=== PATIENT | female | born 1990 | race Hispanic/Latino ===

== ENCOUNTER 2022-02-02 15:46 | Inpatient (IN) | payer OTHER ==
[2022-02-02] MEDS ORDERED: MINERAL OIL 30 ML ORAL LIQD PO PRN (15:52)
[2022-02-02] MEDS ORDERED: miSOPROStol 200 MCG TAB PR PRN (15:52)
[2022-02-02] MEDS ORDERED: fentaNYL 100 MCG/2 ML INJ IV PRN (15:52)
[2022-02-02] MEDS ORDERED: ACETAMINOPHEN 325 MG TAB PO PRN (15:52)
[2022-02-02] MEDS ORDERED: CARBOPROST TROMETHAMINE 250 MCG/1 ML INJ IM PRN (15:52)
[2022-02-02] MEDS ORDERED: LIDOCAINE (2%) 20 MG/1 ML VIAL 20 ML MDV INFILTRATI ONE (15:52)
[2022-02-02] MEDS ORDERED: BUTORPHANOL 2 MG/1 ML INJ IV PRN (15:52)
[2022-02-02] MEDS ORDERED: METHYLERGONOVINE MALEATE 0.2 MG/ML VIAL IM PRN (15:52)
[2022-02-02] MEDS ORDERED: ePHEDrine SULFATE 50 MG/1 ML INJ IV PRN (15:52)
[2022-02-02] MEDS ORDERED: LOPERAMIDE 2 MG CAP PO PRN (15:52)
[2022-02-02] MEDS ORDERED: NalbUPHINE 10 MG/1 ML INJ IV PRN (15:52)
[2022-02-02] MEDS ORDERED: TERBUTALINE 1 MG/1 ML INJ SUB-Q PRN (15:52)
[2022-02-02] MEDS ORDERED: OXYTOCIN 10 UNIT/1 ML INJ IM PRN (15:52)
[2022-02-02] MEDS ORDERED: OXYTOCIN DRIP 30 UNITS/500 ML BAG IV SCH (16:00)
--- NOTE | 2022-02-02 16:01 | History and Physical Report ---
History of Present Illness Date of examination: 02/02/22 Chief complaint: pt presented for routine OB appointment, SROM before being seen History of present illness: EDC Calculations by LMP: 02/17/2022 Past History : 1 Term Births: 0 Premature Births: 0 Living Children: 0 Para: 0 Mult. Births: 0 Prev : 0 Aborta: 0 Elect. Ab: 0 Spont. 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 Past Surgical History: Reviewed and updated today: negative Family History Summary: PGM - Has Family History of Lung Cancer - Entered On: 07/10/2021 Father - Has Family History of Diabetes - Entered On: 07/10/2021 Social History: Patient is single Smoking History: Patient is a former smoker. 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 % Sun Exposure: rarely Family History Risk Factors: Family History of OH in 1 Female Relative Age < 65: no Family History of OH in 1 Male Relative Age < 55: no No Dietary Counseling Reason: pn yes Past Medical History Anesthesia Complications: negative Anemia: negative Autoimmune Disorder: negative Bleeding Disorder: negative Blood Transfusions: negative Breast Disease: negative Diabetes: negative Heart Disease: negative Hypertension: negative Hepatitis/Liver Disease: negative Kidney Disease/UTI: negative Neurologic/Epilepsy/Migraines: negative Phlebitis/Varicosities: negative Psychiatric: positive, Anxiety Pulmonary Disease/Asthma: negative Thyroid Disease: negative Hospitalizations: negative 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 Infection History Hx of STD: none HIV Risk Eval: no Hepatitis B Risk Eval: low risk Personal hx. of genital herpes: no Partner hx. of genital herpes: no Rash, Viral, or Febrile illness since last LMP? no Varicella/Chicken Pox Status: Previous Disease TB Risk: no Genetic History Congenital Heart Defect: Mom: no Dad: no Mikaela Disease: Mom: no Dad: no Thalassemia Mom: no Dad: no Neural Tube Defect Mom: no Dad: no Down's Syndrome Mom: no Dad: yes Comments: 1st cousin Down Syndrome Chester-Sachs Mom: no Dad: no Sickle Cell Disease/Trait Mom: no Dad: no Hemophilia Mom: no Dad: no Muscular Dystrophy Mom: no Dad: no Cystic Fibrosis Mom: no Dad: no Elisabet Chorea Mom: no Dad: no Mental Retardation Mom: no Dad: no Fragile X Mom: no Dad: no Other Genetic/Chromosomal Disorder Mom: no Dad: no Child w/other defect Mom: no Dad: no Enviromental Exposures Xray Exposure: no Medication, drug, or alcohol use since LMP: yes Chemical/Other Exposure: no Exposure to Cat Liter: yes Hx of Parvovirus (Fifth Disease): no Occupational Exposure to Children: none Comments: 1 alcochol before finding out she was . 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 Negative: distention, tenderness, guarding Genitourinary (Female): Positive: normal external genitalia, normal perenium Vulva: both: normal (SROM moderate amount of clear fluid) Uterus: Positive: normal size, normal contour Anus/Rectum: Positive: normal perianal skin Extremities: Positive: normal Deep Tendon Reflex Grade: Normal +2 - Obstetrical FHR: auscultation normal Uterine Contraction Monitor Mode: Palpation Cervical Dilatation: 0.5 Cervical Effacement Percentage: 50 station: -3 Uterine Tone Measurement Phase: Resting Results All other labs normal. Assessment and Plan 31 y/o @ 37+6 SROM @ 1500 in office, clear fluid. SVE ft. GBS neg. Admission orders in EMR. - Patient Problems (1) 37 weeks gestation of Current Visit: Yes Status: Acute (2) SROM (spontaneous rupture of membranes) Current Visit: Yes Status: Acute Plan to address problem: check temp per protocol limit SVEs Augment labor
[2022-02-02] MEDS ORDERED: LACTATED RINGERS 1,000 ML IV SCH (16:45)
[2022-02-02 16:46] LABS: Hematocrit 31.3 % (30.3-42.9); Mean Corpuscular HGB Conc 35 % (30-34); Mean Corpuscular Volume 86 fl (79-97); Platelet Count 418 K/mm3 (140-440); Red Blood Count 3.62 M/mm3 (3.65-5.03); Red Cell Distribution Width 14.2 % (13.2-15.2)
[2022-02-02] MEDS ORDERED: ONDANSETRON 4 MG/2 ML INJ ONE (22:44)
[2022-02-03] MEDS ORDERED: NALOXONE 0.4 MG/1 ML INJ IV PRN ×2 (02:25→17:53)
[2022-02-03] MEDS ORDERED: ePHEDrine SULFATE 50 MG/1 ML INJ IV PRN (02:25)
--- NOTE | 2022-02-03 02:25 | Anesthesia Consultation ---
Anesthesia Consult and Med Hx Date of service: 02/03/22 - Airway Anesthetic Teeth Evaluation: Good ROM Head & Neck: Adequate Mental/Hyoid Distance: Adequate Mallampati Class: Class II Intubation Access Assessment: Good - Pulmonary Exam CTA: Yes - Cardiac Exam Cardiac Exam: RRR - Pre-Operative Health Status ASA Pre-Surgery Classification: ASA2 Proposed Anesthetic Plan: Epidural - Pulmonary Hx Asthma: No - Cardiovascular System Hx Hypertension: No - Central Nervous System Hx Seizures: No Hx Psychiatric Problems: No - Endocrine Hx Renal Disease: No Hx Hypothyroidism: No Hx Hyperthyroidism: No - Hematic Hx Anemia: No Hx Sickle Cell Disease: No - Other Systems Hx Alcohol Use: No
--- NOTE | 2022-02-03 02:27 | Progress Note ---
Labor Epidural - Labor Epidural Start Time: 02:08 Stop Time: 02:16 Performed by:: ALESSANDRA DHALIWAL Procedure: Patient is requesting epidural for labor and pain. H&P, labs were reviewed. Patient IDed, all questions and concerns were answered, and consent was signed. Timeout was performed at bedside. Patient in sitting position. Sterile prep and drape was performed. 3ml of 1% lidocaine skin wheal at L[3]- L [4]. 17- gauge Tuohy epidural needle was advanced to loss of resistance with air technique cm. Negative CSF negative blood. Epidural catheter advanced to [+] centimeters. [negative] Aspiration [negative] test dose. Sterile dressing applied. Patient tolerated procedure.
[2022-02-03] MEDS: fentaNYL-BUPIV 2 MCG/ML-0.125% 200 MCG/100 ML BAG EPIDURAL SCH ×2 (02:35→12:56)
[2022-02-03] MEDS: OXYTOCIN DRIP 30 UNITS/500 ML BAG IV SCH ×6 (04:24→09:45)
[2022-02-03] MEDS ORDERED: diphenhydrAMINE 50 MG/ML VIAL ONE (05:10)
--- NOTE | 2022-02-03 05:35 | Progress Note ---
Assessment and Plan - Patient Problems (1) 38 weeks gestation of Current Visit: Yes Status: Acute (2) SROM (spontaneous rupture of membranes) Current Visit: Yes Status: Acute Plan to address problem: Cervix 7cm still however cervix edematous but soft and pliable. UC's spaced out after epidural. Pitocin started however suspicious decels noted and pitocin stopped. Good descent to +1 with a contraction. Now FHt's cat 1. IUPC placed without difficulty after verbal consent obtained. Clear fluid. Pelvis feel adequate. Strip reviewed with family, will try Benadryl to relieve edema of the cervis, observe fht's ~30 minutes then will consider restarting pitocin if needed. Plan of care discussed with patient who voiced understanding and agrees with POC. RN present and aware of POC. Subjective - Subjective Date of service: 02/03/22 Principal diagnosis: IUP@38 weeks, SROM, Labor Patient reports: contractions, no new complaints Objective - Vital Signs Vital Signs: Vital Signs - 12hr 02/02/22 02/02/22 02/02/22 19:29 19:34 19:39 Pulse Rate 95 H 104 H 117 H Blood Pressure O2 Sat by Pulse 97 99 98 Oximetry 02/02/22 02/02/22 02/02/22 19:44 19:49 19:54 Pulse Rate 109 H 110 H 101 H Blood Pressure O2 Sat by Pulse 99 99 98 Oximetry 02/02/22 02/02/22 02/02/22 19:59 20:04 20:09 Pulse Rate 100 H 99 H 97 H Blood Pressure O2 Sat by Pulse 99 100 100 Oximetry 02/02/22 02/02/22 02/02/22 20:14 20:19 20:24 Pulse Rate 104 H 96 H 84 Blood Pressure O2 Sat by Pulse 100 100 100 Oximetry 02/02/22 02/02/22 02/02/22 20:29 20:34 20:39 Pulse Rate 91 H 92 H 95 H Blood Pressure O2 Sat by Pulse 100 99 100 Oximetry 02/02/22 02/02/22 02/02/22 20:44 20:49 20:54 Pulse Rate 98 H 100 H 101 H Blood Pressure O2 Sat by Pulse 99 99 100 Oximetry 02/02/22 02/02/22 02/02/22 20:59 21:04 21:09 Pulse Rate 121 H 120 H 108 H Blood Pressure O2 Sat by Pulse 99 99 99 Oximetry 02/02/22 02/02/22 02/02/22 21:14 21:19 21:24 Pulse Rate 97 H 105 H 99 H Blood Pressure O2 Sat by Pulse 98 99 98 Oximetry 02/02/22 02/02/22 02/02/22 21:29 21:34 21:38 Pulse Rate 93 H 101 H 112 H Blood Pressure O2 Sat by Pulse 100 98 94 Oximetry 02/02/22 02/02/22 02/02/22 21:39 21:44 21:49 Pulse Rate 102 H 98 H 95 H Blood Pressure O2 Sat by Pulse 99 99 100 Oximetry 02/02/22 02/02/22 02/02/22 21:54 21:59 22:04 Pulse Rate 94 H 102 H 97 H Blood Pressure O2 Sat by Pulse 99 97 99 Oximetry 02/02/22 02/02/22 02/02/22 22:09 22:14 22:19 Pulse Rate 98 H 101 H 97 H Blood Pressure O2 Sat by Pulse 97 97 98 Oximetry 02/02/22 02/02/22 02/02/22 22:26 22:31 22:36 Pulse Rate 108 H 114 H Blood Pressure O2 Sat by Pulse 97 99 98 Oximetry 02/02/22 02/02/22 02/02/22 22:41 22:46 22:51 Pulse Rate 100 H 94 H 101 H Blood Pressure O2 Sat by Pulse 98 98 99 Oximetry 02/02/22 02/02/22 02/02/22 22:56 23:01 23:06 Pulse Rate 105 H 107 H 104 H Blood Pressure O2 Sat by Pulse 99 99 97 Oximetry 02/02/22 02/02/22 02/02/22 23:11 23:16 23:21 Pulse Rate 105 H 112 H 120 H Blood Pressure O2 Sat by Pulse 99 97 98 Oximetry 02/02/22 02/02/22 02/02/22 23:26 23:31 23:36 Pulse Rate 112 H 111 H 113 H Blood Pressure O2 Sat by Pulse 99 97 98 Oximetry 02/02/22 02/02/22 02/02/22 23:41 23:46 23:55 Pulse Rate 110 H 125 H 118 H Blood Pressure O2 Sat by Pulse 97 98 98 Oximetry 02/03/22 02/03/22 02/03/22 00:00 00:05 00:10 Pulse Rate 107 H 106 H 106 H Blood Pressure O2 Sat by Pulse 98 98 99 Oximetry 02/03/22 02/03/22 02/03/22 00:15 00:20 00:25 Pulse Rate 107 H 121 H 118 H Blood Pressure O2 Sat by Pulse 97 98 97 Oximetry 02/03/22 02/03/22 02/03/22 00:30 00:35 00:36 Pulse Rate 116 H 106 H 102 H Blood Pressure O2 Sat by Pulse 96 96 94 Oximetry 02/03/22 02/03/22 02/03/22 00:40 00:45 00:50 Pulse Rate 103 H 109 H 104 H Blood Pressure O2 Sat by Pulse 97 97 99 Oximetry 02/03/22 02/03/22 02/03/22 00:55 01:00 01:05 Pulse Rate 102 H 113 H 104 H Blood Pressure O2 Sat by Pulse 97 98 96 Oximetry 02/03/22 02/03/22 02/03/22 01:16 01:21 01:26 Pulse Rate 113 H 115 H 111 H Blood Pressure O2 Sat by Pulse 99 97 98 Oximetry 02/03/22 02/03/22 02/03/22 01:31 01:36 01:41 Pulse Rate 120 H 127 H 117 H Blood Pressure O2 Sat by Pulse 99 99 98 Oximetry 02/03/22 02/03/22 02/03/22 01:46 01:51 01:56 Pulse Rate 116 H 115 H 115 H Blood Pressure O2 Sat by Pulse 100 98 98 Oximetry 02/03/22 02/03/22 02/03/22 02:01 02:06 02:11 Pulse Rate 121 H 120 H 123 H Blood Pressure O2 Sat by Pulse 100 97 98 Oximetry 02/03/22 02/03/22 02/03/22 02:16 02:19 02:20 Pulse Rate 120 H 117 H 115 H Blood Pressure 132/80 129/80 O2 Sat by Pulse 99 Oximetry 02/03/22 02/03/22 02/03/22 02:21 02:22 02:23 Pulse Rate 113 H 115 H 114 H Blood Pressure 125/77 126/75 126/72 O2 Sat by Pulse 98 Oximetry 02/03/22 02/03/22 02/03/22 02:24 02:25 02:26 Pulse Rate 112 H 108 H 104 H Blood Pressure 114/68 122/67 116/63 O2 Sat by Pulse 97 Oximetry 02/03/22 02/03/22 02/03/22 02:27 02:31 02:33 Pulse Rate 107 H 110 H 101 H Blood Pressure 122/63 112/58 O2 Sat by Pulse 97 Oximetry 02/03/22 02/03/22 02/03/22 02:36 02:37 02:41 Pulse Rate 107 H 100 H 111 H Blood Pressure 114/77 O2 Sat by Pulse 97 97 Oximetry 02/03/22 02/03/22 02/03/22 02:42 02:46 02:47 Pulse Rate 111 H 111 H 113 H Blood Pressure 96/55 91/54 O2 Sat by Pulse 97 Oximetry 02/03/22 02/03/22 02/03/22 02:51 02:54 02:56 Pulse Rate 109 H 114 H 115 H Blood Pressure 121/68 O2 Sat by Pulse 98 98 Oximetry 02/03/22 02/03/22 02/03/22 02:57 03:01 03:06 Pulse Rate 116 H 109 H 112 H Blood Pressure 99/55 O2 Sat by Pulse 97 96 Oximetry 02/03/22 02/03/22 02/03/22 03:11 03:14 03:16 Pulse Rate 106 H 103 H 105 H Blood Pressure 90/44 O2 Sat by Pulse 97 96 Oximetry 02/03/22 02/03/22 02/03/22 03:21 03:26 03:30 Pulse Rate 106 H 104 H 102 H Blood Pressure 87/41 O2 Sat by Pulse 96 95 Oximetry 02/03/22 02/03/22 02/03/22 03:31 03:36 03:41 Pulse Rate 102 H 106 H 100 H Blood Pressure 117/54 O2 Sat by Pulse 95 97 97 Oximetry 02/03/22 02/03/22 02/03/22 03:45 03:46 03:51 Pulse Rate 130 H 116 H 109 H Blood Pressure 115/57 O2 Sat by Pulse 97 97 Oximetry 02/03/22 02/03/22 02/03/22 03:56 03:59 04:01 Pulse Rate 119 H 105 H 109 H Blood Pressure 117/60 O2 Sat by Pulse 97 97 Oximetry 02/03/22 02/03/22 02/03/22 04:06 04:11 04:14 Pulse Rate 108 H 111 H 107 H Blood Pressure 113/57 O2 Sat by Pulse 97 98 Oximetry 02/03/22 02/03/22 02/03/22 04:16 04:21 04:26 Pulse Rate 101 H 113 H 110 H Blood Pressure O2 Sat by Pulse 96 97 97 Oximetry 02/03/22 02/03/22 02/03/22 04:31 04:36 04:41 Pulse Rate 105 H 104 H 103 H Blood Pressure O2 Sat by Pulse 97 97 95 Oximetry 02/03/22 02/03/22 02/03/22 04:44 04:46 04:51 Pulse Rate 101 H 95 H 118 H Blood Pressure 148/61 O2 Sat by Pulse 96 98 Oximetry 02/03/22 02/03/22 02/03/22 04:56 05:00 05:01 Pulse Rate 113 H 116 H 112 H Blood Pressure 101/59 O2 Sat by Pulse 97 97 Oximetry 02/03/22 02/03/22 02/03/22 05:06 05:11 05:13 Pulse Rate 117 H 123 H 121 H Blood Pressure 117/63 O2 Sat by Pulse 97 98 Oximetry 02/03/22 02/03/22 02/03/22 05:16 05:21 05:26 Pulse Rate 115 H 116 H 111 H Blood Pressure O2 Sat by Pulse 98 98 97 Oximetry 02/03/22 02/03/22 05:28 05:31 Pulse Rate 114 H 112 H Blood Pressure 103/56 O2 Sat by Pulse 97 Oximetry - Exam Breasts: deferred Cardiovascular: Regular rate Lungs: Normal air movement Abdomen: Present: normal appearance, soft. Absent: distention, tenderness, guarding Vulva: both: normal Uterus: Present: fundal height above umbilicus. Absent: tenderness FHR: category 1 Cervical Dilatation: 7.5 (swollen) Cervical Effacement Percentage: 70 station: 0 Uterine Contraction Frequency (min): 3-5 Uterine Contraction Pattern: Regular Extremities: normal - Labs Labs: Abnormal Labs 02/02/22 16:15 WBC 16.7 H RBC 3.62 L MCHC 35 H Laboratory Results - last 24 hr 02/02/22 02/02/22 02/02/22 16:15 16:15 16:27 WBC 16.7 H RBC 3.62 L Hgb 11.0 Hct 31.3 MCV 86 MCH 30 MCHC 35 H RDW 14.2 Plt Count 418 Syphilis IgG/IgM Ab Nonreactive Blood Type O POSITIVE Antibody Screen Negative
[2022-02-03] MEDS ORDERED: diphenhydrAMINE 50 MG/ML VIAL IV ONE (07:12)
--- NOTE | 2022-02-03 09:33 | Progress Note ---
Assessment and Plan - Patient Problems (1) 38 weeks gestation of Current Visit: Yes Status: Acute Plan to address problem: Patient lying in bed without complaint. Introduced myself to patient as on-call provider. Plan of care reviewed. Recent exam 8 cm with good decent of head with contractions. Will reassess cervix in 1-2 hors. Anticipate . Did discuss again if no progress may proceed to C/S. All questions and concerns addressed. (2) SROM (spontaneous rupture of membranes) Current Visit: Yes Status: Acute Subjective - Subjective Date of service: 02/03/22 Principal diagnosis: IUP@38 weeks, SROM, Labor Patient reports: contractions, no new complaints Objective - Vital Signs Vital Signs: Vital Signs - 12hr 02/02/22 02/02/22 02/02/22 21:34 21:38 21:39 Temperature Pulse Rate 101 H 112 H 102 H Respiratory Rate Blood Pressure Blood Pressure [Left] O2 Sat by Pulse 98 94 99 Oximetry 02/02/22 02/02/22 02/02/22 21:44 21:49 21:54 Temperature Pulse Rate 98 H 95 H 94 H Respiratory Rate Blood Pressure Blood Pressure [Left] O2 Sat by Pulse 99 100 99 Oximetry 02/02/22 02/02/22 02/02/22 21:59 22:04 22:09 Temperature Pulse Rate 102 H 97 H 98 H Respiratory Rate Blood Pressure Blood Pressure [Left] O2 Sat by Pulse 97 99 97 Oximetry 02/02/22 02/02/22 02/02/22 22:14 22:19 22:26 Temperature Pulse Rate 101 H 97 H Respiratory Rate Blood Pressure Blood Pressure [Left] O2 Sat by Pulse 97 98 97 Oximetry 02/02/22 02/02/22 02/02/22 22:31 22:36 22:41 Temperature Pulse Rate 108 H 114 H 100 H Respiratory Rate Blood Pressure Blood Pressure [Left] O2 Sat by Pulse 99 98 98 Oximetry 02/02/22 02/02/22 02/02/22 22:46 22:51 22:56 Temperature Pulse Rate 94 H 101 H 105 H Respiratory Rate Blood Pressure Blood Pressure [Left] O2 Sat by Pulse 98 99 99 Oximetry 02/02/22 02/02/22 02/02/22 23:01 23:06 23:11 Temperature Pulse Rate 107 H 104 H 105 H Respiratory Rate Blood Pressure Blood Pressure [Left] O2 Sat by Pulse 99 97 99 Oximetry 02/02/22 02/02/22 02/02/22 23:16 23:21 23:26 Temperature Pulse Rate 112 H 120 H 112 H Respiratory Rate Blood Pressure Blood Pressure [Left] O2 Sat by Pulse 97 98 99 Oximetry 02/02/22 02/02/22 02/02/22 23:31 23:36 23:41 Temperature Pulse Rate 111 H 113 H 110 H Respiratory Rate Blood Pressure Blood Pressure [Left] O2 Sat by Pulse 97 98 97 Oximetry 02/02/22 02/02/22 02/03/22 23:46 23:55 00:00 Temperature Pulse Rate 125 H 118 H 107 H Respiratory Rate Blood Pressure Blood Pressure [Left] O2 Sat by Pulse 98 98 98 Oximetry 02/03/22 02/03/22 02/03/22 00:05 00:10 00:15 Temperature Pulse Rate 106 H 106 H 107 H Respiratory Rate Blood Pressure Blood Pressure [Left] O2 Sat by Pulse 98 99 97 Oximetry 02/03/22 02/03/22 02/03/22 00:20 00:25 00:30 Temperature Pulse Rate 121 H 118 H 116 H Respiratory Rate Blood Pressure Blood Pressure [Left] O2 Sat by Pulse 98 97 96 Oximetry 02/03/22 02/03/22 02/03/22 00:35 00:36 00:40 Temperature Pulse Rate 106 H 102 H 103 H Respiratory Rate Blood Pressure Blood Pressure [Left] O2 Sat by Pulse 96 94 97 Oximetry 02/03/22 02/03/22 02/03/22 00:45 00:50 00:55 Temperature Pulse Rate 109 H 104 H 102 H Respiratory Rate Blood Pressure Blood Pressure [Left] O2 Sat by Pulse 97 99 97 Oximetry 02/03/22 02/03/22 02/03/22 01:00 01:05 01:16 Temperature Pulse Rate 113 H 104 H 113 H Respiratory Rate Blood Pressure Blood Pressure [Left] O2 Sat by Pulse 98 96 99 Oximetry 02/03/22 02/03/22 02/03/22 01:21 01:26 01:31 Temperature Pulse Rate 115 H 111 H 120 H Respiratory Rate Blood Pressure Blood Pressure [Left] O2 Sat by Pulse 97 98 99 Oximetry 02/03/22 02/03/22 02/03/22 01:36 01:41 01:46 Temperature Pulse Rate 127 H 117 H 116 H Respiratory Rate Blood Pressure Blood Pressure [Left] O2 Sat by Pulse 99 98 100 Oximetry 02/03/22 02/03/22 02/03/22 01:51 01:56 02:01 Temperature Pulse Rate 115 H 115 H 121 H Respiratory Rate Blood Pressure Blood Pressure [Left] O2 Sat by Pulse 98 98 100 Oximetry 02/03/22 02/03/22 02/03/22 02:06 02:11 02:16 Temperature Pulse Rate 120 H 123 H 120 H Respiratory Rate Blood Pressure Blood Pressure [Left] O2 Sat by Pulse 97 98 99 Oximetry 02/03/22 02/03/22 02/03/22 02:19 02:20 02:21 Temperature 98.4 F Pulse Rate 120 H 115 H 113 H Respiratory 18 Rate Blood Pressure 132/80 129/80 125/77 Blood Pressure 132/80 [Left] O2 Sat by Pulse 99 98 Oximetry 02/03/22 02/03/22 02/03/22 02:22 02:23 02:24 Temperature Pulse Rate 115 H 114 H 112 H Respiratory Rate Blood Pressure 126/75 126/72 114/68 Blood Pressure [Left] O2 Sat by Pulse Oximetry 02/03/22 02/03/22 02/03/22 02:25 02:26 02:27 Temperature Pulse Rate 108 H 104 H 107 H Respiratory Rate Blood Pressure 122/67 116/63 122/63 Blood Pressure [Left] O2 Sat by Pulse 97 Oximetry 02/03/22 02/03/22 02/03/22 02:31 02:33 02:36 Temperature Pulse Rate 110 H 101 H 107 H Respiratory Rate Blood Pressure 112/58 Blood Pressure [Left] O2 Sat by Pulse 97 97 Oximetry 02/03/22 02/03/22 02/03/22 02:37 02:41 02:42 Temperature Pulse Rate 100 H 111 H 111 H Respiratory Rate Blood Pressure 114/77 96/55 Blood Pressure [Left] O2 Sat by Pulse 97 Oximetry 02/03/22 02/03/22 02/03/22 02:46 02:47 02:51 Temperature Pulse Rate 111 H 113 H 109 H Respiratory Rate Blood Pressure 91/54 Blood Pressure [Left] O2 Sat by Pulse 97 98 Oximetry 02/03/22 02/03/22 02/03/22 02:54 02:56 02:57 Temperature Pulse Rate 114 H 115 H 116 H Respiratory Rate Blood Pressure 121/68 99/55 Blood Pressure [Left] O2 Sat by Pulse 98 Oximetry 02/03/22 02/03/22 02/03/22 03:01 03:06 03:11 Temperature Pulse Rate 109 H 112 H 106 H Respiratory Rate Blood Pressure Blood Pressure [Left] O2 Sat by Pulse 97 96 97 Oximetry 02/03/22 02/03/22 02/03/22 03:14 03:16 03:21 Temperature Pulse Rate 103 H 105 H 106 H Respiratory Rate Blood Pressure 90/44 Blood Pressure [Left] O2 Sat by Pulse 96 96 Oximetry 02/03/22 02/03/22 02/03/22 03:26 03:30 03:31 Temperature Pulse Rate 104 H 102 H 102 H Respiratory Rate Blood Pressure 87/41 Blood Pressure [Left] O2 Sat by Pulse 95 95 Oximetry 02/03/22 02/03/22 02/03/22 03:36 03:41 03:45 Temperature Pulse Rate 106 H 100 H 130 H Respiratory Rate Blood Pressure 117/54 115/57 Blood Pressure [Left] O2 Sat by Pulse 97 97 Oximetry 02/03/22 02/03/22 02/03/22 03:46 03:51 03:56 Temperature Pulse Rate 116 H 109 H 119 H Respiratory Rate Blood Pressure Blood Pressure [Left] O2 Sat by Pulse 97 97 97 Oximetry 02/03/22 02/03/22 02/03/22 03:59 04:01 04:06 Temperature Pulse Rate 105 H 109 H 108 H Respiratory Rate Blood Pressure 117/60 Blood Pressure [Left] O2 Sat by Pulse 97 97 Oximetry 02/03/22 02/03/22 02/03/22 04:11 04:14 04:16 Temperature Pulse Rate 111 H 107 H 101 H Respiratory Rate Blood Pressure 113/57 Blood Pressure [Left] O2 Sat by Pulse 98 96 Oximetry 02/03/22 02/03/22 02/03/22 04:21 04:26 04:31 Temperature Pulse Rate 113 H 110 H 105 H Respiratory Rate Blood Pressure Blood Pressure [Left] O2 Sat by Pulse 97 97 97 Oximetry 02/03/22 02/03/22 02/03/22 04:36 04:41 04:44 Temperature Pulse Rate 104 H 103 H 101 H Respiratory Rate Blood Pressure 148/61 Blood Pressure [Left] O2 Sat by Pulse 97 95 Oximetry 07/02/03/22 02/03/22 04:46 04:51 04:56 Temperature Pulse Rate 95 H 118 H 113 H Respiratory Rate Blood Pressure Blood Pressure [Left] O2 Sat by Pulse 96 98 97 Oximetry 02/03/22 02/03/22 02/03/22 05:00 05:01 05:06 Temperature Pulse Rate 116 H 112 H 117 H Respiratory Rate Blood Pressure 101/59 Blood Pressure [Left] O2 Sat by Pulse 97 97 Oximetry 02/03/22 02/03/22 02/03/22 05:11 05:13 05:16 Temperature Pulse Rate 123 H 121 H 115 H Respiratory Rate Blood Pressure 117/63 Blood Pressure [Left] O2 Sat by Pulse 98 98 Oximetry 02/03/22 02/03/22 02/03/22 05:21 05:26 05:28 Temperature Pulse Rate 116 H 111 H 114 H Respiratory 18 Rate Blood Pressure 103/56 Blood Pressure 103/56 [Left] O2 Sat by Pulse 98 97 97 Oximetry 02/03/22 02/03/22 02/03/22 05:31 05:36 05:41 Temperature Pulse Rate 112 H 111 H 117 H Respiratory Rate Blood Pressure Blood Pressure [Left] O2 Sat by Pulse 97 98 98 Oximetry 02/03/22 02/03/22 02/03/22 05:43 05:46 05:51 Temperature Pulse Rate 106 H 103 H 104 H Respiratory Rate Blood Pressure 112/58 Blood Pressure [Left] O2 Sat by Pulse 97 97 Oximetry 02/03/22 02/03/22 02/03/22 05:56 05:59 06:01 Temperature Pulse Rate 123 H 112 H 107 H Respiratory Rate Blood Pressure 113/55 Blood Pressure [Left] O2 Sat by Pulse 99 97 Oximetry 02/03/22 02/03/22 02/03/22 06:06 06:11 06:14 Temperature Pulse Rate 100 H 106 H 116 H Respiratory Rate Blood Pressure 129/60 Blood Pressure [Left] O2 Sat by Pulse 97 97 Oximetry 02/03/22 02/03/22 02/03/22 06:16 06:21 06:26 Temperature Pulse Rate 117 H 109 H 109 H Respiratory Rate Blood Pressure Blood Pressure [Left] O2 Sat by Pulse 99 98 98 Oximetry 02/03/22 02/03/22 02/03/22 06:30 06:31 06:36 Temperature 98.2 F Pulse Rate 109 H 124 H 108 H Respiratory 18 Rate Blood Pressure 122/66 Blood Pressure 122/66 [Left] O2 Sat by Pulse 97 97 97 Oximetry 02/03/22 02/03/22 02/03/22 06:41 06:43 06:46 Temperature Pulse Rate 107 H 104 H 105 H Respiratory Rate Blood Pressure 123/63 Blood Pressure [Left] O2 Sat by Pulse 97 97 Oximetry 02/03/22 02/03/22 02/03/22 06:51 06:56 06:59 Temperature Pulse Rate 105 H 108 H 109 H Respiratory Rate Blood Pressure 122/68 Blood Pressure [Left] O2 Sat by Pulse 99 97 Oximetry 02/03/22 02/03/22 02/03/22 07:01 07:06 07:11 Temperature Pulse Rate 114 H 102 H 114 H Respiratory Rate Blood Pressure Blood Pressure [Left] O2 Sat by Pulse 97 98 98 Oximetry 02/03/22 02/03/22 02/03/22 07:13 07:16 07:21 Temperature Pulse Rate 113 H 122 H 119 H Respiratory Rate Blood Pressure 120/68 Blood Pressure [Left] O2 Sat by Pulse 99 99 Oximetry 02/03/22 02/03/22 02/03/22 07:24 07:25 07:26 Temperature 98.4 F Pulse Rate 117 H 115 H 118 H Respiratory 17 Rate Blood Pressure 129/74 Blood Pressure 129/74 [Left] O2 Sat by Pulse 99 98 Oximetry 02/03/22 02/03/22 02/03/22 07:30 07:31 07:36 Temperature Pulse Rate 116 H 122 H 117 H Respiratory Rate Blood Pressure 125/67 Blood Pressure [Left] O2 Sat by Pulse 100 99 Oximetry 02/03/22 02/03/22 02/03/22 07:41 07:45 07:46 Temperature Pulse Rate 122 H 118 H 125 H Respiratory Rate Blood Pressure 125/68 Blood Pressure [Left] O2 Sat by Pulse 99 100 Oximetry 02/03/22 02/03/22 02/03/22 07:51 07:56 07:59 Temperature Pulse Rate 124 H 127 H 123 H Respiratory Rate Blood Pressure 134/74 Blood Pressure [Left] O2 Sat by Pulse 99 99 Oximetry 02/03/22 02/03/22 02/03/22 08:01 08:06 08:11 Temperature Pulse Rate 113 H 125 H 110 H Respiratory Rate Blood Pressure Blood Pressure [Left] O2 Sat by Pulse 100 99 100 Oximetry 02/03/22 02/03/22 02/03/22 08:14 08:16 08:21 Temperature Pulse Rate 120 H 114 H 115 H Respiratory Rate Blood Pressure 108/59 Blood Pressure [Left] O2 Sat by Pulse 98 99 Oximetry 02/03/22 02/03/22 02/03/22 08:26 08:30 08:31 Temperature Pulse Rate 124 H 112 H 120 H Respiratory Rate Blood Pressure 127/70 Blood Pressure [Left] O2 Sat by Pulse 100 99 Oximetry 02/03/22 02/03/22 02/03/22 08:36 08:41 08:46 Temperature Pulse Rate 125 H 114 H 146 H Respiratory Rate Blood Pressure Blood Pressure [Left] O2 Sat by Pulse 99 100 98 Oximetry 02/03/22 02/03/22 02/03/22 08:51 08:56 08:59 Temperature Pulse Rate 121 H 104 H 103 H Respiratory Rate Blood Pressure 129/58 Blood Pressure [Left] O2 Sat by Pulse 99 98 Oximetry 02/03/22 02/03/22 02/03/22 09:01 09:06 09:11 Temperature Pulse Rate 119 H 100 H 105 H Respiratory Rate Blood Pressure Blood Pressure [Left] O2 Sat by Pulse 98 98 98 Oximetry 02/03/22 02/03/22 02/03/22 09:13 09:16 09:21 Temperature Pulse Rate 107 H 98 H 104 H Respiratory Rate Blood Pressure 128/64 Blood Pressure [Left] O2 Sat by Pulse 98 99 Oximetry 02/03/22 02/03/22 09:26 09:30 Temperature Pulse Rate 99 H 107 H Respiratory Rate Blood Pressure 126/73 Blood Pressure [Left] O2 Sat by Pulse 98 Oximetry - Exam Abdomen: Present: normal appearance FHR: category 1 Uterine Contraction Pattern: Regular - Labs Labs: Abnormal Labs 02/02/22 16:15 WBC 16.7 H RBC 3.62 L MCHC 35 H Laboratory Results - last 24 hr 02/02/22 02/02/22 02/02/22 16:15 16:15 16:27 WBC 16.7 H RBC 3.62 L Hgb 11.0 Hct 31.3 MCV 86 MCH 30 MCHC 35 H RDW 14.2 Plt Count 418 Syphilis IgG/IgM Ab Nonreactive Blood Type O POSITIVE Antibody Screen Negative
[2022-02-03] MEDS ORDERED: BUPIVACAINE/PF (0.25%) 2.5 MG/ML 10 ML VIAL INFILTRATI ONE (12:45)
--- NOTE | 2022-02-03 13:26 | Event Note ---
Date: 02/03/22 Patient C/C/1+ at approximately 10AM. Round of pushing half an hour with minimal descent. Break to allow patient to labor down. Patient complaining of pressure and pushing resumed at approximately 11:30. Continued for 1 hour with minimal descent only to 2+ station. Moody with blood noted. position palpated at direct OP with increasing caput noted. Findings reviewed patient. She states she is in too much pain to continue pushing and with minimal descent desires section. Consent obtained. Will proceed to OR primary section for failure to descend.
--- NOTE | 2022-02-03 15:28 | Anesthesia Day of Surgery ---
Anesthesia Day of Surgery - Day of Surgery Patient Examined: Yes Patient H&P Reviewed: Yes Patient is NPO: Yes Beta Blockers: No Cardiac Clearance: No Pulmonary Clearance: No Drake's Test: N/A
[2022-02-03] MEDS ORDERED: BICITRA ORAL LIQD 30ML ONE (15:34)
[2022-02-03] MEDS ORDERED: BICITRA ORAL LIQD 30ML PO ONE (15:34)
[2022-02-03] MEDS ORDERED: FAMOTIDINE 20 MG/2 ML INJ IV ONE ×2 (15:34)
[2022-02-03] MEDS ORDERED: METOCLOPRAMIDE 10 MG/2 ML INJ ONE (15:34)
[2022-02-03] MEDS ORDERED: METOCLOPRAMIDE 10 MG/2 ML INJ IV ONE (15:34)
[2022-02-03] MEDS ORDERED: LACTATED RINGERS 1,000 ML IV SCH (15:45)
[2022-02-03] MEDS ORDERED: ONDANSETRON 4 MG/2 ML INJ ONE (15:50)
[2022-02-03] MEDS ORDERED: LIDOCAINE 2%/EPINEPHRINE 1:200,000 VIAL (20 ML) INFILTRATI ONE (15:50)
[2022-02-03] MEDS ORDERED: BUPIVACAINE/PF (0.25%) 2.5 MG/ML 30 ML VIAL INFILTRATI ONE (15:54)
[2022-02-03] MEDS ORDERED: KETOROLAC 30 MG/1 ML INJ ONE (15:54)
[2022-02-03] MEDS ORDERED: OXYTOCIN DRIP 30 UNITS/500 ML BAG IV SCH ×2 (16:00→18:00)
[2022-02-03] MEDS ORDERED: ceFAZolin/Water 2 GM/20 ML 2 GM/20 ML SYRINGE IV NR (16:00)
[2022-02-03] MEDS ORDERED: AZITHROMYCIN/NS 500 MG/250 ML 500 MG/250 ML BAG IV ONE (16:00)
[2022-02-03] MEDS ORDERED: ceFAZolin/STERILE WATER 2 GM/20 ML SYRINGE IV ONE (16:35)
[2022-02-03] MEDS ORDERED: SODIUM CHLORIDE 0.9% IRR 1,500 ML BOTTLE IR ONE (16:38)
[2022-02-03] MEDS ORDERED: WATER FOR IRRIG STERILE 1,500 ML BOTTLE IR ONE (16:38)
[2022-02-03] MEDS ORDERED: OXYTOCIN 10 UNIT/1 ML INJ ONE (16:54)
--- NOTE | 2022-02-03 17:52 | Operative Report ---
Operative Report Operative Report: Date of Procedure: February 04, 2020 Preoperative diagnosis: IUP @37 weeks 6 days, premature rupture membranes, f ailure to descend Postoperative diagnosis: same, s/p primary section Procedure: Low transverse section Surgeon: Kiana Trevino MD Editor Continuity And Script: RAUL Anesthesia: Epidural Complications: none EBL: 785 ml IV Fluids: 700 ml UOP: 200 ml, clear urine at the end of procedure Indications: Failure to descend Findings: 3025 g male infant in direct occiput posterior position cephalic presentation with Apgars 7 & 9 Amniotic fluid clear Fallopian tubes normal in appearance bilaterally Ovaries normal in appearance bilaterally Procedure: The patient was taken to the operating room where epidural anesthesia was found to be adequate. 2 g Ancef was given prior to the procedure. She was then prepared and draped in the usual sterile fashion in the dorsal supine posi tion with a leftward tilt. A Pfannenstiel skin incision was made with the scalpel and carried through to the underlying layer of fascia with the bovie. The fascia was incised in the midline and the incision extended laterally. The superior aspect of the fascial incision was then grasped with the Yoel's clamps, elevated, and the underlying rectus muscles dissected off bluntly and with sharp dissection using bovie. Attention was then turned to the inferior aspect of this incision which, in a similar fashion, was grasped, tented up with the Yoel clamps, and the rectus was dissected off bluntly and with sharp dissection. The rectus muscles were then in the midline, and the peritoneum identified and entered bluntly. The peritoneal incision was then extended superiorly and inferiorly with good visualization of the bladder. The bladder blade was then inserted and the vesicouterine peritoneum identified, grasped with the pick ups, and entered sharply with the Metzenbaum scissors. This incision was then extended laterally and the bladder flap created digitally. The bladder blade was then reinserted and the lower uterine segment incised in a transverse fashion with the scalpel. The uterine incision was then extended laterally digitally. The bladder blade was then removed and the was delivered via direct occiput position with assistance from a vaginal hand. Nuchal cord reduced. The nose and mouth were suctioned with the bulb suction and the cord clamped and cut. The was handed off to the waiting pediatricians.The placenta was then removed; the uterus exteriorized and cleared of all clots and debris. The uterine incision was repaired with 0 vicryl in a running locked fashion to obtain excellent hemostasis. An area of oozing was noted and a figure of eight suture was placed giving excellent hemostasis.An imbrication layer was done. Uterus returned to the abdomen. Interceed was applied over the incision. The rectus muscle was reapproximated with 2-0 vicryl. The fascia was reapproximated with 0 vicryl in a running fashion. The skin was closed with 4-0 monocryl subcuticular stitch and the incision sealed with Steri- strips.prior to the end of the procedure azithromycin 500 mg was also given. The patient tolerated the procedure well. Sponge, lap, needle counts correct X 2. The patient was taken to the recovery room in a stable condition.
[2022-02-03] MEDS ORDERED: LANOLIN/ZINC/DIMETHICONE (LANSINOH) 7 GM TP PRN (17:53)
[2022-02-03] MEDS ORDERED: SIMETHICONE 80 MG CHEW TAB PO PRN (17:53)
[2022-02-03] MEDS ORDERED: ONDANSETRON 4 MG/2 ML INJ IV PRN (17:53)
[2022-02-03] MEDS ORDERED: WITCH HAZEL/ GLYCERIN PAD TP PRN (17:53)
[2022-02-03] MEDS ORDERED: MORPHINE 4 MG/1 ML INJ IV PRN (17:53)
[2022-02-03] MEDS ORDERED: HYDROmorphone 1 MG/1 ML INJ IV PRN (18:02)
[2022-02-03] MEDS ORDERED: PROMETHAZINE 25 MG TAB PO PRN (18:02)
[2022-02-03] MEDS ORDERED: PROMETHAZINE 25 MG RECT SUPP PR PRN (18:02)
[2022-02-03] MEDS ORDERED: ACETAMINOPHEN 325 MG TAB PO PRN (21:22)
[2022-02-03] MEDS: KETOROLAC 30 MG/1 ML INJ IV SCH (23:35)
[2022-02-04] MEDS: KETOROLAC 30 MG/1 ML INJ IV SCH (05:55)
[2022-02-04 07:53] LABS: Hemoglobin 9.4 gm/dl (10.1-14.3)
[2022-02-04] MEDS: oxyCODONE /ACETAMINOPHEN 5-325MG TAB PO PRN ×3 (08:58→21:18)
--- NOTE | 2022-02-04 11:37 | Progress Note ---
Assessment and Plan - Patient Problems (1) delivery delivered Current Visit: Yes Status: Acute Plan to address problem: Patient meeting postop goals Incision C/D/I Toradol and Percocet for pain management. Will transition Toradol to ibuprofen Regular diet Colace ordered (2) Acute blood loss anemia Current Visit: Yes Status: Acute Plan to address problem: Asymptomatic Ferrous sulfate 325mg daily Subjective - Subjective Date of service: 02/04/22 Principal diagnosis: s/p primary C/S Patient reports: appetite normal, voiding normally, pain well controlled, flatus, ambulating normally [place]: doing well Objective - Vital Signs Latest vital signs: Vital Signs Temp Pulse Resp BP BP Pulse Ox Pulse Ox 02/04/22 10:25 98 02/04/22 08:40 98.8 F 99 H 20 134/86 99 02/04/22 08:10 96 02/04/22 04:44 99.3 F 102 H 20 146/88 96 02/04/22 00:11 98.4 F 107 H 20 119/72 92 02/03/22 20:25 98.0 F 104 H 16 146/88 96 96 02/03/22 19:45 96 H 19 134/88 95 02/03/22 19:30 92 H 18 134/83 96 02/03/22 19:15 93 H 15 135/86 96 02/03/22 19:00 93 H 15 134/87 96 02/03/22 18:45 97 H 12 134/85 98 02/03/22 18:30 94 H 16 126/84 97 02/03/22 18:15 100 H 12 129/76 97 02/03/22 18:10 103 H 11 L 129/103 98 02/03/22 18:05 95 H 15 138/87 99 02/03/22 18:00 98.6 F 91 H 15 119/53 97 02/03/22 13:22 100 H 97 02/03/22 13:17 111 H 96 02/03/22 13:12 109 H 99 02/03/22 13:07 99 H 97 02/03/22 13:02 102 H 98 02/03/22 12:57 99 H 97 02/03/22 12:52 101 H 98 02/03/22 12:47 114 H 99 02/03/22 12:42 112 H 98 02/03/22 12:37 120 H 96 02/03/22 12:32 111 H 98 02/03/22 12:27 107 H 98 02/03/22 12:22 110 H 99 02/03/22 12:17 125 H 99 02/03/22 12:12 112 H 99 02/03/22 12:07 111 H 99 02/03/22 12:02 106 H 98 02/03/22 11:57 129 H 97 02/03/22 11:52 111 H 96 02/03/22 11:47 105 H 98 02/03/22 11:41 104 H 98 02/03/22 11:36 110 H 96 Intake and Output 02/03/22 02/04/22 02/04/22 23:59 07:59 15:59 Intake Total 1440 240 360 Output Total 500 300 500 Balance 940 -60 -140 Intake: IV 1200 Oral 240 360 Intake, Free Water 240 Output: Urine 500 300 500 Indwelling Catheter 300 300 Void 500 Other: Total, Intake Amount 240 360 Total, Output Amount 300 300 300 # Voids Void 1 Estimated Blood Loss 785 - Exam Breasts: Present: normal Uterus: Present: normal, firm, fundal height at umbilicus Extremities: Present: normal Incision: Present: normal, dry, intact, other - Labs Labs: Abnormal lab results 02/04/22 Range/Units 07:10 Hgb 9.4 L (10.1-14.3) gm/dl Hct 28.0 L (30.3-42.9) %
[2022-02-04] MEDS: PRENATAL VIT27-FE FUMARATE-FOLIC ACID VIT TAB PO SCH (15:17)
[2022-02-04] MEDS: FERROUS SULFATE 325 MG TAB PO SCH (15:17)
[2022-02-04] MEDS: DOCUSATE SODIUM 100 MG CAP PO SCH ×2 (15:17→21:18)
[2022-02-05] MEDS: IBUPROFEN 800 MG TAB PO SCH ×4 (00:33→18:27)
[2022-02-05] MEDS: oxyCODONE /ACETAMINOPHEN 5-325MG TAB PO PRN ×4 (03:16→21:47)
[2022-02-05 05:11] LABS: Hematocrit 23.6 % (30.3-42.9); Hemoglobin 7.8 gm/dl (10.1-14.3); Mean Corpuscular HGB Conc 33 % (30-34); Mean Corpuscular Volume 88 fl (79-97); Platelet Count 329 K/mm3 (140-440); Red Blood Count 2.69 M/mm3 (3.65-5.03); Red Cell Distribution Width 14.8 % (13.2-15.2)
[2022-02-05 05:45] LABS: Alanine Aminotransferase 11 units/L (7-56); Albumin 2.6 g/dL (3.9-5); BUN/Creatinine Ratio 15; Blood Urea Nitrogen 9 mg/dL (7-17); Calcium 8.2 mg/dL (8.4-10.2); Hemolysis Index 2
--- NOTE | 2022-02-05 08:55 | Discharge Summary ---
Providers - Providers Date of Admission: 02/03/22 14:26 Date of discharge: 02/05/22 Attending physician: JADYN DE LA ROSA MD 02/03/22 17:53 Consult to Building Equipment Inspector [CONS] Routine Reason For Exam: Primary care physician: JADYN DE LA ROSA MD Hospitalization Reason for admission: active labor Delivery: Procedure: primary low transverse Episiotomy: none Laceration: none Incision: normal, dry, intact, other (No s/sx of infection and no drainage noted. ) complications: none Discharge diagnosis: IUP at term delivered [place] baby: male Pertinent studies: Pt denies feeling dizzy, lightheaded, short of breath, or chest pain. We discussed need for iron supplementation and diet changes to assist increasing th e iron intake in her diet. We also discussed iron supplementation should be taken for at least a month. Also had some elevated blood pressures after delivery. Her BPs are now WNL. Her Pre-eclampsia labs were normal and she denies REED, blurred vision, spots before her eyes, chest pain, shortness of breath, and upper abdominal pain. Hospital course: S: Pt doing well. Ambulating, voiding, passing flatus okay. O: VSS. Adequate I&Os. Incision: open to air, intact, no drainage, no s/sx of infection noted. Steri-strips intact. A: 31 y.o. s/p primary . POD #2. In good condition . P: Discharge home with instructions. Pt to make son's circumcision and her incision check in the office in 1 wk. Condition at discharge: Good Disposition: 01 HOME / SELF CARE / HOMELESS Plan - Discharge Medications Prescriptions: Docusate Sodium [Colace] 100 mg PO BID #60 capsule Lidocain2.5%/Prilocai2.5% [Emla] 1 applic TP ONCE #1 tube Ferrous Sulfate [Feosol 325 MG tab] 325 mg PO QDAY #30 tablet Ibuprofen [Motrin 800 MG tab] 800 mg PO Q8HR #30 tablet oxyCODONE /ACETAMINOPHEN [Percocet 5/325] 1 tab PO Q6HR PRN #20 tablet PRN Reason: Pain - Provider Discharge Summary Activity: routine, no sex for 6 weeks, no heavy lifting 4 weeks, no strenuous exercise Diet: routine Instructions: routine Additional instructions: [] Smoking cessation referral if applicable(refer to patient education folder for contact #) [] Refer to [facility]'s [facility] Booklet Call your doctor immediately for: * Fever > 100.5 * Heavy vaginal bleeding ( >1 pad per hour) * Severe persistent headache * Shortness of breath * Reddened, hot, painful area to leg or breast * Drainage or odor from incision. * Keep incision clean and dry at all times and follow doctor's instructions regarding bathing/showering - Follow up plan Follow up: JADYN DE LA ROSA MD [Primary Care Provider] - 7 Days (- Congratulations on the of your baby boy! - Thank you for allowing us to take care of you! - Please schedule your incision check and son's circumcision in 1 week. - You have been prescribed EMLA cream for your son'e circumcision. Please do not use this cream at home but bring it with you to your son's circumcision. - Should you have any questions or concerns after discharge, please do not hesitate to call the office at [phone]. )
[2022-02-05] MEDS: PRENATAL VIT27-FE FUMARATE-FOLIC ACID VIT TAB PO SCH (10:05)
[2022-02-05] MEDS: FERROUS SULFATE 325 MG TAB PO SCH (10:05)
[2022-02-05] MEDS: DOCUSATE SODIUM 100 MG CAP PO SCH ×2 (10:05→21:48)
[2022-02-06] MEDS: IBUPROFEN 800 MG TAB PO SCH ×3 (00:13→11:54)
--- NOTE | 2022-02-06 03:53 | Post Anesthesia Evaluation ---
- Post Anesthesia Evaluation Patient Participated: No Airway Patent: Yes Stable Respiratory Function: Yes Nausea/Vomiting: No Temp > 96.8F: Yes Pain Manageable: Yes Adequeate Hydration: Yes Anesthesia Complications: No Block Receding Appropriately: Yes Patient on Ventilator: No
[2022-02-06] MEDS: oxyCODONE /ACETAMINOPHEN 5-325MG TAB PO PRN ×2 (04:47→10:14)
[2022-02-06 09:23] VITALS: BP 131/89
[2022-02-06] MEDS: DOCUSATE SODIUM 100 MG CAP PO SCH (10:09)
[2022-02-06] MEDS: FERROUS SULFATE 325 MG TAB PO SCH (10:09)
[2022-02-06] MEDS: PRENATAL VIT27-FE FUMARATE-FOLIC ACID VIT TAB PO SCH (10:22)
== END 2022-02-06 12:15 | disposition home or self-care (01) | DRG 787 ==
LOC: TRG 15:46 → LD 15:48 → TRG 02-03 14:24 → LD 02-03 14:26 → OB 02-03 20:02
PROVIDERS: ADMIT Student in an Organized Health Care Education/Training Program; ATTEND Student in an Organized Health Care Education/Training Program
PROC: 10D00Z1 Extraction of Products of Conception, Low, Open Approach (ICD-10-PCS; principal; 2022-02-03)
DX: O42.02 Full-term premature rupture of membranes, onset of labor within 24 hours of rupture (principal); D62 Acute posthemorrhagic anemia; Z20.822 Contact with and (suspected) exposure to COVID-19; Z37.0 Single live birth; Z3A.37 37 weeks gestation of pregnancy; O90.81 Anemia of the puerperium
CPT/HCPCS: 36415; 80053; 83615; 85014; 85018; 85027; 86592; 86850; 86900; 86901; G0378; J3490; J0690; J1200; J1885; J2405; J2590; J2765; J3010; U0003